=== PATIENT | female | born 1960 | race Caucasian/White ===

== ENCOUNTER → 2018-02-28 | Outpatient (REF) | payer BC ==
[2018-02-28 13:40] LABS: BASO # 0.1 10^3/uL (0.0-0.2); BASO % 1.4 % (0.0-1.0); EOS # 0.4 10^3/uL (0.0-0.50); EOS % 5.6 % (0.0-3.0); HEMATOCRIT 45.6 % (36.0-47.0); HEMOGLOBIN 14.6 g/dl (12.0-15.5); IMMATURE GRANULOCYTE % 0.2 % (0-3.0); LYMPH # 3.1 10^3/uL (1.5-4.5); LYMPH % 46.4 % (24.0-44.0); MEAN CORPUSCULAR HEMOGLOBIN 29.2 pg (27.0-33.0); MEAN CORPUSCULAR VOLUME 91.2 fl (80.0-96.0); MONO # 0.3 10^3/uL (0.0-0.8); NEUTROPHILS # 2.7 10^3/uL (1.8-7.7); NEUTROPHILS % 41.4 % (36.0-66.0); PLATELET COUNT, AUTOMATED 253 10^3/uL (150-450); WHITE BLOOD COUNT 6.6 10^3/uL (4.0-10.0)
[2018-02-28 13:52] LABS: ESTIMATED AVERAGE GLUCOSE 126 MG/DL (60-110)
[2018-02-28 13:54] LABS: VITAMIN B12 LEVEL 354 PG/ML
[2018-02-28 13:55] LABS: FOLATE 16.1 NG/ML
[2018-02-28 13:58] LABS: ALBUMIN 3.8 GM/DL (3.2-5.2); ALBUMIN/GLOBULIN RATIO 0.97 (1.00-1.93); ALKALINE PHOSPHATASE 102 U/L (45-117); ALT/SGPT 25 U/L (12-78); ANION GAP 6 MEQ/L (8-16); AST/SGOT 21 U/L (7-37); BILIRUBIN,TOTAL 0.5 MG/DL (0.2-1.0); BLOOD UREA NITROGEN 17 MG/DL (7-18); CALCIUM LEVEL 8.9 MG/DL (8.5-10.1); CARBON DIOXIDE LEVEL 30 MEQ/L (21-32); CHLORIDE LEVEL 106 MEQ/L (98-107); CREATININE FOR GFR 0.81 MG/DL (0.55-1.30); FREE T4 1.06 NG/DL (0.76-1.46); GLOMERULAR FILTRATION RATE > 60.0 (>51); GLUCOSE, FASTING 86 MG/DL (70-100); POTASSIUM SERUM 3.9 MEQ/L (3.5-5.1); RHEUMATOID FACTOR QUANT < 10.0 IU/ML (<15.0); SODIUM LEVEL 142 MEQ/L (136-145); TOTAL PROTEIN 7.7 GM/DL (6.4-8.2)
[2018-02-28 14:47] LABS: ERYTHROCYTE SEDIMENTATION RATE 11 mm/hr (0-30)
[2018-03-01 11:50] LABS: ALBUMIN 4.23 GM/DL (3.29-5.55); ALBUMIN % 54.9 % (55.8-66.1); ALPHA-1-GLOBULIN % 4.3 % (2.9-4.9); ALPHA-1-GLOBULINS 0.33 GM/DL (0.17-0.41); ALPHA-2-GLOBULINS 0.86 GM/DL (0.42-0.99); ALPHA-2-GLOBULINS % 11.2 % (7.1-11.8); BETA-1-GLOBULINS 0.55 GM/DL (0.28-0.60); BETA-1-GLOBULINS % 7.1 % (4.7-7.2); BETA-2-GLOBULINS 0.44 GM/DL (0.19-0.55); BETA-2-GLOBULINS % 5.7 % (3.2-6.5); GAMMA GLOBULIN % 16.8 % (11.1-18.8); GAMMA GLOBULINS 1.29 GM/DL (0.65-1.58)
== END ==
LOC: M LABNEURO 10:29
DX: R20.0 Anesthesia of skin (principal); I77.6 Arteritis, unspecified; Z13.1 Encounter for screening for diabetes mellitus
CPT/HCPCS: 82746

== ENCOUNTER → 2022-07-14 | Outpatient (CLI) | payer BC, MEDICARE | LOC: M SOG 14:16 | PROVIDERS: ATTEND Orthopaedic Surgery Adult Reconstructive Orthopaedic Surgery | DX: M17.0 Bilateral primary osteoarthritis of knee (principal) ==

== ENCOUNTER 2022-07-30 14:06 | Outpatient (RCR) | payer MEDICARE ==
[2022-08-06] MEDS ORDERED: VITMTA PO (09:55)
[2022-08-06] MEDS ORDERED: D31000CA4 PO (09:55)
[2022-08-06] MEDS ORDERED: VITA20002 PO (09:55)
[2022-08-19] MEDS ORDERED: ECOT81TA5 PO (09:28)
[2022-08-19] MEDS ORDERED: OXYC1TAB23 PO (10:52)
== END 2022-08-28 ==
LOC: M PT 14:06
PROVIDERS: ATTEND Orthopaedic Surgery Adult Reconstructive Orthopaedic Surgery
DX: M17.0 Bilateral primary osteoarthritis of knee (principal)

== ENCOUNTER → 2022-08-04 | Outpatient (CLI) | payer MEDICARE ==
[~2022-08-04] MED LIST: D31000CA4 PO; VITA20002 PO; VITMTA PO
== END ==
LOC: M RAD 10:49
PROVIDERS: ATTEND Orthopaedic Surgery Adult Reconstructive Orthopaedic Surgery
DX: M17.0 Bilateral primary osteoarthritis of knee (principal)

== ENCOUNTER → 2022-08-13 | Outpatient (CLI) | payer BC, MEDICARE | LOC: M LABSMTC 10:15 | PROVIDERS: ATTEND Anesthesiology | DX: Z01.818 Encounter for other preprocedural examination (principal); Z11.52 Encounter for screening for COVID-19 ==

== ENCOUNTER 2022-08-18 08:37 | Inpatient (IN) | payer MEDICARE ==
[2022-08-18] VITALS (7 sets, daily range): BP systolic 106–141; BP diastolic 69–83
[~2022-08-18] VITALS: Ht 157.5 cm; Wt 94.3 kg
[~2022-08-18 08:37] MED LIST changes: +ACETAMINOPHEN 500 MG TAB PO ONE; +NS 1,000 ML IV ONE; +PREGABALIN 25 MG CAP (LYRICA) PO ONE; +ROPIVA 125MG/EPINEPH 0.25MG/CLONID 40MCG/KETOR 15MG IN NS 50ML SYRINGE PA ONE; +ceFAZolin SOD 2 GM in IV 1 EA IV ONE; +dexameTHASONE 4 MG/ML 1ML VIAL (J1100 PER 1MG) IV ONE
[2022-08-18] MEDS ORDERED: LIDOCAINE 2% 100MG/5ML SDV (FOR ANES.) As Ordered ONE (08:46)
[2022-08-18] MEDS ORDERED: fentaNYL 100 MCG/2 ML INJECTION As Ordered ONE (08:46)
[2022-08-18] MEDS ORDERED: propofoL 500 MG/50 ML VIAL As Ordered ONE (08:46)
[2022-08-18] MEDS ORDERED: MIDAZOLAM INJ 2MG/2ML VIAL (J2250 PER 1MG) As Ordered ONE (08:46)
[2022-08-18] MEDS ORDERED: BUPIVACAINE/DEXTROSE 0.75% 2ML AMP As Ordered ONE (08:46)
[2022-08-18] MEDS ORDERED: ROCURONIUM BROMIDE 50 MG/5 ML VIAL As Ordered ONE (09:42)
[2022-08-18] MEDS ORDERED: LR 1,000 ML IV SCH ×3 (09:45→15:50)
[2022-08-18] MEDS ORDERED: ACETAMINOPHEN 1000MG 100ML IV BTL (OFIRMEV) (J0131 PER 10MG) As Ordered ONE ×2 (10:40→12:33)
[2022-08-18] MEDS ORDERED: TRANEXAMIC ACID 100 MG/ML 10ML VIAL As Ordered ONE ×2 (11:08→11:51)
[2022-08-18] MEDS ORDERED: fentaNYL 250 MCG/5 ML INJECTION As Ordered ONE (11:14)
[2022-08-18] MEDS ORDERED: GLYCOPYRROLATE INJ 0.2 MG/ML 2 ML VIAL As Ordered ONE (12:14)
[2022-08-18] MEDS ORDERED: KETOROLAC 60MG 2ML VIAL As Ordered ONE (12:33)
[2022-08-18] MEDS ORDERED: ONDANSETRON 4MG 2ML VIAL As Ordered ONE (12:33)
[2022-08-18] MEDS ORDERED: dexameTHASONE 4 MG/ML 1ML VIAL (J1100 PER 1MG) As Ordered ONE (12:33)
[2022-08-18] MEDS ORDERED: HYDROmorphone HCL 2MG/ML 1ML VIAL As Ordered ONE (13:19)
[2022-08-18] MEDS ORDERED: ePHEDrine SULFATE 25 MG/5 ML(5MG/ML) SYRINGE As Ordered ONE (14:11)
[2022-08-18] MEDS ORDERED: SUGAMMADEX SODIUM 500 MG/5 ML VIAL (BRIDION) As Ordered ONE (15:03)
[2022-08-18] MEDS ORDERED: ONDANSETRON 4MG 2ML VIAL IV PRN (15:30)
[2022-08-18] MEDS ORDERED: fentaNYL 100 MCG/2 ML INJECTION IV PRN (15:30)
[2022-08-18] MEDS ORDERED: MORPHINE 2 MG/ML 1ML VIAL IV PRN (15:30)
[2022-08-18] MEDS ORDERED: METOCLOPRAMIDE INJ 10MG/2ML VIAL (J2765 PER 1) IV PRN (15:30)
[2022-08-18] MEDS ORDERED: oxyCODONE 5MG TAB PO PRN ×2 (15:30→16:00)
[2022-08-18] MEDS ORDERED: traMADol 50 MG TAB PO PRN (15:55)
[2022-08-18] MEDS ORDERED: SENNA 8.6 MG TAB (SENOKOT) PO PRN (16:00)
[2022-08-18] MEDS: ONDANSETRON 4MG 2ML VIAL IV PRN (16:50)
[2022-08-18] MEDS: ACETAMINOPHEN TAB 650MG DOSE (2X325MG) PO SCH ×2 (18:17→23:35)
[2022-08-18] MEDS: DOCUSATE SODIUM 100MG CAPSULE PO SCH (19:31)
[2022-08-18] MEDS: ceFAZolin SOD 2 GM in IV 1 EA IV SCH (19:31)
[2022-08-18] MEDS: oxyCODONE 5MG TAB PO PRN (19:32)
[2022-08-18] MEDS ORDERED: POLYVINYL ALCOHOL OPHTH SOLN 15 ML(LIQUITEARS) OU PRN (20:05)
[2022-08-19] MEDS: oxyCODONE 5MG TAB PO PRN ×2 (01:27→08:45)
[2022-08-19 02:38] VITALS: BP 124/71
[2022-08-19] MEDS: ceFAZolin SOD 2 GM in IV 1 EA IV SCH (05:10)
[2022-08-19] MEDS: ACETAMINOPHEN TAB 650MG DOSE (2X325MG) PO SCH (05:11)
[2022-08-19 05:55] VITALS: BP 124/73
[2022-08-19 06:09] LABS: HEMOGLOBIN 11.3 g/dl (12.0-15.5); MEAN CORPUSCULAR HEMOGLOBIN 30.6 pg (27.0-33.0); MEAN CORPUSCULAR HGB CONC 32.3 g/dl (32.0-36.5); MEAN CORPUSCULAR VOLUME 94.9 fl (80.0-96.0); PLATELET COUNT, AUTOMATED 229 10^3/uL (150-450); RED BLOOD COUNT 3.69 10^6/uL (4.00-5.40); WHITE BLOOD COUNT 12.2 10^3/uL (4.0-10.0)
[2022-08-19 06:43] LABS: ALBUMIN 2.7 GM/DL (3.2-5.2); ALT/SGPT 28 U/L (12-78); BILIRUBIN,TOTAL 0.3 MG/DL (0.2-1.0); BLOOD UREA NITROGEN 12 MG/DL (7-18); CALCIUM LEVEL 8.2 MG/DL (8.8-10.2); CARBON DIOXIDE LEVEL 27 MEQ/L (21-32); CHLORIDE LEVEL 108 MEQ/L (98-107); CREATININE FOR GFR 0.65 MG/DL (0.55-1.30); GLOMERULAR FILTRATION RATE > 60.0 (>45); GLUCOSE, FASTING 142 MG/DL (70-100); POTASSIUM SERUM 4.4 MEQ/L (3.5-5.1); SODIUM LEVEL 139 MEQ/L (136-145); TOTAL PROTEIN 5.5 GM/DL (6.4-8.2)
[2022-08-19] MEDS: DOCUSATE SODIUM 100MG CAPSULE PO SCH (08:45)
[2022-08-19] MEDS ORDERED: FERROUS SULFATE 325MG TAB PO SCH (09:00)
[2022-08-19] MEDS ORDERED: ASCORBIC ACID 500 MG TAB PO SCH (09:00)
[2022-08-19] MEDS ORDERED: ECOT81TA5 PO (09:28)
[2022-08-19] MEDS: ONDANSETRON 4MG 2ML VIAL IV PRN (09:29)
[2022-08-19] MEDS ORDERED: OXYC1TAB23 PO (10:52)
== END 2022-08-19 11:25 | disposition home or self-care (01) | DRG 470 ==
LOC: M SDC 08:37 → M MS5PR 08:38 → OBSVTOIN 17:06 → M MS5PR 08-19 11:25 → M SDC 08-19 11:25
PROVIDERS: ADMIT Orthopaedic Surgery Adult Reconstructive Orthopaedic Surgery; ATTEND Orthopaedic Surgery Adult Reconstructive Orthopaedic Surgery
PROC: 0SRD0J9 Replacement of Left Knee Joint with Synthetic Substitute, Cemented, Open Approach (ICD-10-PCS; principal; 2022-08-18 10:45)
DX: M17.12 Unilateral primary osteoarthritis, left knee (principal); Z79.82 Long term (current) use of aspirin; Z79.899 Other long term (current) drug therapy

== ENCOUNTER → 2023-08-19 | Outpatient (CLI) | payer MEDICARE ==
[~2023-08-19] MED LIST changes: -ACETAMINOPHEN 500 MG TAB PO ONE; +ECOT81TA5 PO; -NS 1,000 ML IV ONE; +OXYC1TAB23 PO; -PREGABALIN 25 MG CAP (LYRICA) PO ONE; -ROPIVA 125MG/EPINEPH 0.25MG/CLONID 40MCG/KETOR 15MG IN NS 50ML SYRINGE PA ONE; -ceFAZolin SOD 2 GM in IV 1 EA IV ONE; -dexameTHASONE 4 MG/ML 1ML VIAL (J1100 PER 1MG) IV ONE
== END ==
LOC: M SOG 08:00
PROVIDERS: ATTEND Orthopaedic Surgery
DX: Z96.652 Presence of left artificial knee joint (principal)